=== PATIENT | female | born 1945 | race Caucasian/White ===

== ENCOUNTER → 2016-08-25 | Outpatient (CLI) | payer MEDICARE, BC ==
[~2016-08-25] MED LIST: AMLO1CAP18 PO; CALC-5 PO; CETI10TA56 PO; CHOL200024; DICY20TA PO; DIPH1TAB PO; DIPH25CA84 PO; HYDR-3841 PO; LEVO125T11 PO; MUPI22OI2 TOP; TRAM50TA4 PO; VIT1CAPS PO; VITAMIN B 12 SL; [UNRECOGNIZED DRUG - CODE] PO; [UNRECOGNIZED DRUG - CODE] PO
[2016-08-25 14:09] LABS: BASOPHILS % (AUTO) 0.3 % (0-2); EOSINOPHILS # (AUTO) 0.2 T/MM3 (0-0.5); EOSINOPHILS % (AUTO) 2.5 % (0-4); HCT - HEMATOCRIT 30.4 % (36-46); HGB - HEMOGLOBIN 9.4 GM/DL (12-16); IMMATURE GRANULOCYTE # (AUTO) 0.01 T/MM3 (0.00-0.03); IMMATURE GRANULOCYTE % (AUTO) 0.1 % (0.0-0.5); LYMPHOCYTES # (AUTO) 1.1 T/MM3 (1-4.8); LYMPHOCYTES % (AUTO) 14.7 % (23-45); MEAN CORPUSCULAR HGB 26.3 UUG (26-34); MEAN CORPUSCULAR HGB CONC(MCHC 30.9 GM/DL (31-37); MEAN CORPUSCULAR VOLUME 84.9 UM3 (80-100); MEAN PLATELET VOLUME 10.1 UM3 (9.4-12.4); MONOCYTES # (AUTO) 0.6 T/MM3 (0-0.8); MONOCYTES % (AUTO) 8.2 % (0-9.0); NEUTROPHILS #(AUTO)-ABSOLUTE 5.6 T/MM3 (1.8-7.7); NEUTROPHILS % (AUTO) 74.2 % (33-66); RED BLOOD COUNT 3.58 M/MM3 (4.00-5.20); WBC - WHITE BLOOD COUNT 7.6 T/MM3 (4.5-11.0)
== END ==
LOC: LAB 13:52
PROVIDERS: ATTEND Internal Medicine
DX: D50.0 Iron deficiency anemia secondary to blood loss (chronic) (principal)
CPT/HCPCS: 36415; 82728; 85025

== ENCOUNTER → 2016-08-31 | Outpatient (CLI) | payer MEDICARE, BC ==
[~2016-08-31] VITALS: Ht 162.6 cm; Wt 84.0 kg
[2016-08-31 11:00] VITALS: Ht 162.6 cm; Wt 84.0 kg
[2016-08-31 11:47] VITALS: BP 132/69; PULSE 71; RESP 16; TEMP 97.6; O2SAT 98
[2016-08-31] MEDS: IRON DEXTRAN IV ONE (11:47)
[2016-08-31] MEDS: NORMAL SALINE IV ONE (11:47)
[2016-08-31 12:17] VITALS: BP 128/65; PULSE 62; RESP 16; O2SAT 98
[2016-08-31 13:22] VITALS: BP 156/69; PULSE 72; RESP 16; O2SAT 97
[2016-08-31] MEDS: NORMAL SALINE 500 ML IV SCH (14:51)
== END ==
LOC: INF.THER 10:45
PROVIDERS: ATTEND Internal Medicine
DX: D50.9 Iron deficiency anemia, unspecified (principal)
CPT/HCPCS: 96365; 96366; J1750